=== PATIENT | female | born 1985 | race Caucasian/White ===

== ENCOUNTER 2016-05-04 19:33 | Emergency (ER) | payer OTHER ==
[~2016-05-04] VITALS: Ht 157.5 cm; Wt 73.7 kg
[~2016-05-04 19:33] MED LIST: ADULT LOW DOSE81 M1 PO; B COMPLEX1 EACH PO; BIRTHCONTROL; CALCIUM 500 MG1 EACH PO; DILAUDID2 MG PO; DOXYCYCLINE HY100 MG PO; MULTIVITAMIN1 EAC1 PO; Motrin PO; NOR-Q-D0.35 MG PO; ORTHO TRI-CYCL1 EACH PO; REGLAN10 MG PO; ULTRAM50 MG PO; VICODIN ES 7.51 EAC1 PO; VITAMIN E100 UNIT PO; VITAMIN473 ML PO
[2016-05-04] MEDS ORDERED: PREDNISONE20 MG PO (21:29)
[2016-05-04] MEDS ORDERED: MOTRIN800 MG PO (21:29)
[2016-05-04 21:44] VITALS: BP 120/67
== END 2016-05-04 21:45 | disposition home or self-care (01) ==
LOC: EME 19:33 → RME 19:33
DX: J02.8 Acute pharyngitis due to other specified organisms (principal); B34.9 Viral infection, unspecified; F17.200 Nicotine dependence, unspecified, uncomplicated
CPT/HCPCS: 87651 90; 99281; 99284; J7512

== ENCOUNTER 2016-10-15 02:29 | Emergency (ER) | payer OTHER ==
[~2016-10-15] VITALS: Ht 154.9 cm; Wt 65.8 kg
[~2016-10-15 02:29] MED LIST changes: +MOTRIN800 MG PO; +PREDNISONE20 MG PO
[2016-10-15] MEDS ORDERED: FIORICET 50-301 EACH PO (08:33)
[2016-10-15 08:50] VITALS: BP 106/56
== END 2016-10-15 09:04 | disposition home or self-care (01) ==
LOC: EME 02:29
DX: G43.909 Migraine, unspecified, not intractable, without status migrainosus (principal); J02.9 Acute pharyngitis, unspecified; R11.2 Nausea with vomiting, unspecified; Z79.82 Long term (current) use of aspirin; F17.200 Nicotine dependence, unspecified, uncomplicated
CPT/HCPCS: 99281; 99284

== ENCOUNTER 2016-12-15 15:21 | Emergency (ER) | payer OTHER ==
[~2016-12-15 15:21] MED LIST changes: +FIORICET 50-301 EACH PO
[2016-12-15] MEDS ORDERED: MOTRIN800 MG PO (17:59)
[2016-12-15] MEDS ORDERED: FLEXERIL10 MG PO (17:59)
== END 2016-12-15 15:48 | disposition left against medical advice (07) ==
LOC: EME 15:21
DX: M54.2 Cervicalgia (principal); V49.60XA Unspecified car occupant injured in collision with unspecified motor vehicles in traffic accident, initial encounter; Z53.21 Procedure and treatment not carried out due to patient leaving prior to being seen by health care provider

== ENCOUNTER 2016-12-15 16:01 | Emergency (ER) | payer OTHER ==
[~2016-12-15] VITALS: Ht 154.9 cm; Wt 64.1 kg
[2016-12-15] MEDS ORDERED: MOTRIN800 MG PO (17:59)
[2016-12-15] MEDS ORDERED: FLEXERIL10 MG PO (17:59)
[2016-12-15 18:22] VITALS: BP 128/68
== END 2016-12-15 18:23 | disposition home or self-care (01) ==
LOC: EME 16:01
DX: S16.1XXA Strain of muscle, fascia and tendon at neck level, initial encounter (principal); V43.52XA Car driver injured in collision with other type car in traffic accident, initial encounter; F17.200 Nicotine dependence, unspecified, uncomplicated
CPT/HCPCS: 99281; 99284

== ENCOUNTER 2017-04-23 16:27 | Emergency (ER) | payer OTHER ==
[~2017-04-23] VITALS: Ht 154.9 cm; Wt 66.4 kg
[~2017-04-23 16:27] MED LIST changes: +FLEXERIL10 MG PO
[2017-04-23 17:26] LABS: HEMATOCRIT 39.9 % (36.0-46.0); HEMOGLOBIN 13.7 G/DL (11.9-15.5); MCH 30.9 PG (29.0-34.0); MCHC 34.3 G/DL (30.0-36.0); MCV 90.1 FL (83-99); PLATELET COUNT 240 K/uL (156-360); RBC DIS.WIDTH-CV 13.2 % (11.8-14.6); RBC DIS.WIDTH-SD 43.8 % (39-53); RED BLOOD COUNT 4.43 M/uL (3.80-5.20); WHITE BLOOD COUNT 8.2 K/uL (4.1-10.2)
[2017-04-23 17:33] LABS: ALBUMIN 3.6 g/dL (3.2-4.8); CHLORIDE 108 mEq/L (99-109); POTASSIUM 3.9 mEq/L (3.7-5.4)
[2017-04-23 17:34] LABS: SODIUM 142 mEq/L (136-147)
[2017-04-23 17:36] LABS: GLUCOSE 118 mg/dL (70-99); TOTAL PROTEIN 6.2 g/dL (6.4-8.3)
[2017-04-23 17:38] LABS: TOTAL BILIRUBIN 0.2 mg/dL (0.0-1.0)
[2017-04-23 17:39] LABS: ALKALINE PHOSPHATASE 56 IU/L (3-129); CREATININE 0.7 mg/dL (0.6-1.3); GFR ESTIMATE (CALCULATED) > 59 mL/min/
[2017-04-23 17:41] LABS: AST (GOT) 16 IU/L (2-34); UREA NITROGEN (BUN) 6 mg/dL (9-23)
[2017-04-23 17:42] LABS: ALT (GPT) 8 IU/L (3-49); CREATINE KINASE 145 IU/L (1-294)
[2017-04-23 17:49] LABS: QUANTITATIVE HCG < 4.0 MIU/ML
[2017-04-23 18:31] LABS: TROP-I INTERPRETATION NEGATIVE; TROPONIN-I < 0.01 ng/mL (0.0-0.30)
[2017-04-23 20:46] LABS: TROP-I INTERPRETATION NEGATIVE; TROPONIN-I < 0.01 ng/mL (0.0-0.30)
[2017-04-23] MEDS ORDERED: LO-DOSE ASPIRIN81 M1 PO (21:03)
[2017-04-23 21:22] VITALS: BP 137/96
== END 2017-04-23 21:23 | disposition home or self-care (01) ==
LOC: EME 16:27
PROVIDERS: Physician Assistant
DX: R20.2 Paresthesia of skin (principal); M79.89 Other specified soft tissue disorders; R06.00 Dyspnea, unspecified; F17.200 Nicotine dependence, unspecified, uncomplicated
CPT/HCPCS: 70450; 80053; 82550; 84484; 84702; 85027; 93005; 93970; 99281; 99285